=== PATIENT | male | born 1955 | race Caucasian/White ===

== ENCOUNTER 2021-06-26 10:23 | Outpatient (CLI) | payer MEDICARE ==
--- NOTE | 2021-06-26 12:16 | XRAY Report ---
PROCEDURE: Shoulder 3 View LT INDICATIONS: LEFT SHOULDER PAIN TECHNIQUE: 3 views of the shoulder were acquired. COMPARISON: None. FINDINGS: Bones: No fractures or dislocations. No suspicious bony lesions. 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 Visualized ribs appear intact. Soft tissues: No suspicious soft tissue calcifications. IMPRESSION: Moderate left shoulder joint osteophyte is. No acute fracture or dislocation. No gross s oft tissue abnormality. Reviewed by: Marin Leal MD on 06/26/2021 12:15 PM PST Approved by: Marin Leal MD on 06/26/2021 12:15 PM PST Station ID: [id number]
== END 2021-06-26 10:24 | disposition home or self-care (01) ==
LOC: DI.S 10:23
PROVIDERS: ATTEND Nurse Practitioner Family
DX: M19.012 Primary osteoarthritis, left shoulder (principal)

== ENCOUNTER 2023-06-28 08:00 | Outpatient (CLI) | payer MEDICARE ==
--- NOTE | 2023-06-28 14:41 | XRAY Report ---
PROCEDURE: Ribs w/PA Chest 3+V RT INDICATIONS: CONTUSION OF RIGHT BACK WALL OF THORAX TECHNIQUE: 2 views of the ribs were acquired, along with a single view chest. COMPARISON: None. FINDINGS: Surgical changes and devices: None. Bones and chest wall: No fractures or dislocations. No suspicious bony lesions. Overlying soft tis sues appear unremarkable. Lungs and pleura: No pleural effusions or pneumothorax. Lungs appear clear. Mediastinum: Mediastinal contours appear normal. Heart size is normal. IMPRESSION: No visualized acute fracture or dislocation. However, occult injury cannot be excluded. Recommend xochitl rt interval imaging follow-up in 7-10 days as clinically indicated for additional evaluation. Reviewed by: Lilly Levin MD on 06/28/2023 2:39 PM PST Approved by: Lilly Levin MD on 06/28/2023 2:39 PM PST Station ID: [id number]
== END 2023-06-28 23:59 | disposition home or self-care (01) ==
LOC: DI.S 08:00
PROVIDERS: ATTEND Physician Assistant Medical
DX: S20.221A Contusion of right back wall of thorax, initial encounter (principal)